=== PATIENT | male | born 1980 ===

== ENCOUNTER 2018-12-17 09:52 | Emergency (ER) | payer SELFPAY ==
[2018-12-17 10:02] VITALS: BP 121/76
--- NOTE | 2018-12-17 10:42 | UC ---
Respiratory Complaint HPI - HPI Summary HPI Summary: The patient is a 38-year-old male that presents here for evaluation of wheezing and shortness of breath. He has a history of asthma however has not been problematic since his early 20s. He states that he has not had to use an inhaler for greater than 15 years. He recently moved to this area. Since then a few times a month he has episodes of chest tightness wheezing and shortness of breath. This also occurs when he exercises. He denies any chest pain. He denies any fever or chills. He has no pets at home. He is a nonsmoker. - History of Current Complaint Chief Complaint: UCRespiratory Stated Complaint: SOB Time Seen by Provider: 12/17/18 10:34 Hx Obtained From: Patient Onset/Duration: Gradual Onset, Lasting Hours Severity Initially: Moderate Severity Currently: None Pain Intensity: 0 Pain Scale Used: 0-10 Numeric Character: Cough: Nonproductive Aggravating Factors: Nothing Alleviating Factors: Nothing Associated Signs And Symptoms: Positive: Wheezing - resolve - Allergies/Home Medications Allergies/Adverse Reactions: Allergies Allergy/AdvReac Type Severity Reaction Status Date / Time No Known Allergies Allergy Verified 12/17/18 10:02 Home Medications: Home Medications LoraTADine TAB(NF) [Claritin 10 MG TAB(NF)] 10 mg PO DAILY 12/17/18 [History Confirmed 12/17/18] PMH/Surg Hx/FS Hx/Imm Hx Previously Healthy: Yes Respiratory History: Asthma Psychological History: Anxiety - Surgical History Surgical History: None - Family History Known Family History: Positive: Hypertension, Respiratory Disease - COPD - Social History Alcohol Use: Weekly Substance Use Type: None Smoking Status (MU): Former Smoker Review of Systems All Other Systems Reviewed And Are Negative: Yes Constitutional: Positive: Negative Skin: Positive: Negative Eyes: Positive: Negative ENT: Positive: Ear Ache - popping, Sinus Congestion - mild Respiratory: Positive: Shortness Of Breath - resolved, Cough Cardiovascular: Positive: Negative Gastrointestinal: Positive: Negative Genitourinary: Positive: Negative Motor: Positive: Negative Neurovascular: Positive: Negative Musculoskeletal: Positive: Negative Neurological: Positive: Negative Psychological: Positive: Negative Physical Exam Triage Information Reviewed: Yes Appearance: Well-Appearing, No Pain Distress, Well-Nourished Vital Signs: Initial Vital Signs Temp 98.0 F 12/17/18 09:57 Pulse 73 12/17/18 09:57 Resp 18 12/17/18 09:57 BP 121/76 12/17/18 09:57 Pulse Ox 98 12/17/18 09:57 Vital Signs Reviewed: Yes Eyes: Positive: Conjunctiva Clear ENT: Positive: Hearing grossly normal, Nasal congestion, TM bulging. Negative: Tonsillar swelling, Tonsillar exudate, Trismus, Muffled voice, Hoarse voice, Sinus tenderness Neck: Positive: Supple, Nontender, No Lymphadenopathy Respiratory: Positive: Lungs clear, Normal breath sounds, No respiratory distress, No accessory muscle use, Other: - slight wheeze with forced expiration Cardiovascular: Positive: RRR Musculoskeletal: Positive: ROM Intact, No Edema Neurological: Positive: Alert Psychological Exam: Normal Skin Exam: Normal Respiratory Course/Dx - Differential Dx/Diagnosis Provider Diagnosis: Acute bronchospasm Discharge ED - Sign-Out/Discharge Documenting (check all that apply): Patient Departure All imaging exams completed and their final reports reviewed: No Studies - Discharge Plan Condition: Stable Disposition: HOME Prescriptions: predniSONE [Deltasone 20 MG TAB] 40 mg PO DAILY #8 tab Patient Education Materials: Bronchospasm (ED), How to Use a Metered-Dose Inhaler and a Spacer (ED) Referrals: Hiro Barker MD [Medical Doctor] - Gregory Hale MD [Medical Doctor] - Additional Instructions: I suggest you call one of the asthma and residential treatment specialist in [facility] to make an appt for follow up continue claritin recheck for new or worsening symptoms use inhaler 2 puffs 4x day for 5 days then 4x day as needed for wheezing may take 1-2 puffs prior to excercise - Billing Disposition and Condition Condition: STABLE Disposition: Home
[2018-12-17] MEDS ORDERED: Albuterol HFA INHALER* 8 gm MDI INH ONE (10:57)
[2018-12-17] MEDS ORDERED: predniSONE TAB* 20 MG PO ONE (10:57)
[2018-12-17] MEDS ORDERED: predniSONE TAB* 10 MG PO ONE (11:01)
== END 2018-12-17 11:18 | disposition home or self-care (01) ==
LOC: UCEAST 09:52
DX: J98.01 Acute bronchospasm (principal); F41.9 Anxiety disorder, unspecified; Z87.891 Personal history of nicotine dependence
CPT/HCPCS: 99203; A9270-GY; G0463; J7512